=== PATIENT | female | born 1985 | race African-American/Black ===

== ENCOUNTER 2018-06-07 23:33 | Emergency (ER) | payer OTHER ==
[~2018-06-07] VITALS: Ht 165.1 cm; Wt 86.2 kg
[2018-06-08 00:04] LABS: URINE BLOOD TRACE (Negative); URINE CLARITY CLEAR; URINE COLOR YELLOW; URINE GLUCOSE-RANDOM* NEGATIVE (Negative); URINE KETONES 1+ (Negative); URINE LEUKOCYTES-REFLEX NEGATIVE (Negative); URINE NITRITE-REFLEX NEGATIVE (Negative); URINE PROTEIN (DIPSTICK) TRACE (Negative); URINE SPECIFIC GRAVITY >= 1.030 (1.005-1.035); URINE UROBILINOGEN 0.2 E.U./dl (0.2-1.0)
[2018-06-08 00:13] LABS: ICTOTEST (BILI CONFIRMATORY) Negative (Negative); URINE BILIRUBIN NEGATIVE (Negative)
[2018-06-08 00:17] LABS: ABSOLUTE NEUTROPHILS 9.6 thou/uL (1.4-8.2); BASOPHILS 0.4 % (0.0-2.0); EOSINOPHILS 0.7 % (0.0-3.0); HEMATOCRIT 39.6 % (37.0-47.0); HEMOGLOBIN 13.5 gm/dL (12.0-15.0); LYMPHOCYTES 5.9 % (24.0-44.0); MCH 28.8 pg (26.0-34.0); MCHC 34.2 g/dL (28.0-37.0); MCV 84.4 fL (80.0-100.0); MONOCYTES 7.3 % (1.0-8.0); PLATELET COUNT 364 thou/uL (150-400); POLYS 85.7 % (36.0-66.0); WBC 11.2 thou/uL (4.0-11.0)
[2018-06-08 00:22] LABS: CALCIUM 9.5 mg/dL (8.5-10.1); CREATININE 0.8 mg/dL (0.6-1.0); POTASSIUM 4.4 mmol/L (3.5-5.1)
[2018-06-08 00:29] LABS: ALBUMIN 4.4 g/dL (3.4-5.0); TOTAL BILIRUBIN 0.7 mg/dL (<0.1-1.0); TOTAL PROTEIN 8.4 g/dL (6.4-8.2)
[2018-06-08] MEDS ORDERED: ONDANSETRON HCL4 M2 PO (00:49)
[2018-06-08] MEDS ORDERED: BENTYL 20 MG TA20 M1 PO (00:49)
[2018-06-08] MEDS ORDERED: PEPCID40 MG PO (00:49)
[2018-06-08 00:52] VITALS: BP 129/72
== END 2018-06-08 00:57 | disposition home or self-care (01) ==
LOC: ER 23:33
PROVIDERS: Emergency Medicine
DX: R10.13 Epigastric pain (principal); R11.2 Nausea with vomiting, unspecified

== ENCOUNTER 2019-07-03 13:18 | Emergency (ER) | payer OTHER ==
[~2019-07-03] VITALS: Ht 165.1 cm; Wt 90.7 kg
[~2019-07-03 13:18] MED LIST: BENTYL 20 MG TA20 M1 PO; ONDANSETRON HCL4 M2 PO; PEPCID40 MG PO
[2019-07-03 13:24] VITALS: BP 151/86
[2019-07-03] MEDS ORDERED: ZYRTEC10 M4 PO (13:28)
== END 2019-07-03 14:38 | disposition home or self-care (01) ==
LOC: ER 13:18
DX: J06.9 Acute upper respiratory infection, unspecified (principal); Z79.899 Other long term (current) drug therapy

== ENCOUNTER 2019-11-18 01:31 | Emergency (ER) | payer OTHER ==
[~2019-11-18] VITALS: Ht 167.6 cm; Wt 92.5 kg
[~2019-11-18 01:31] MED LIST changes: +ZYRTEC10 M4 PO
[2019-11-18] MEDS ORDERED: PANTOPRAZOLE SO40 M1 PO (02:25)
[2019-11-18] MEDS ORDERED: CARAFATE1 GM/10 ML PO (02:25)
[2019-11-18 03:44] VITALS: BP 146/89
== END 2019-11-18 04:00 | disposition home or self-care (01) ==
LOC: ER 01:31
DX: K21.9 Gastro-esophageal reflux disease without esophagitis (principal); Z79.899 Other long term (current) drug therapy